=== PATIENT | female | born 1950 | race Two or more races ===

== ENCOUNTER 2018-02-11 07:51 | Day surgery (SDC) | payer OTHER ==
[~2018-02-11 07:51] MED LIST: ABATINEX680 MG PO; FLAGYL500MG PO; GLIMEPIRIDE4 MG PO; Intestinex CAP PO; LANTUS SOL100 UNIT/1; NORVASC10 MG PO; OMEPRAZOLE40 MG PO; OXYC1TAB9 PO; PANTOPRAZOLE SO40 MG PO
== END 2018-02-11 11:45 | disposition home or self-care (01) ==
LOC: AMB-ENDOS 07:51
DX: K63.5 Polyp of colon (principal)

== ENCOUNTER 2018-03-06 13:30 | Inpatient (IN) | payer OTHER ==
[~2018-03-06] VITALS: Ht 154.9 cm; Wt 94.3 kg
[2018-03-06] MEDS ORDERED: NORVASC10 MG PO (13:56)
[2018-03-15] MEDS ORDERED: INTESTINEX680 M1 PO (11:55)
[2018-03-15] MEDS ORDERED: PROTONIX40 MG PO (11:55)
[2018-03-15] MEDS ORDERED: FLAGYL500MG PO (11:55)
[2018-03-15] MEDS ORDERED: ULTRACET PO (11:55)
== END 2018-03-15 14:00 | disposition home or self-care (01) | DRG 333 ==
LOC: O/R 03-13 05:40 → SURG 03-13 05:40
PROVIDERS: Surgery
PROC: 0DQR0ZZ Repair Anal Sphincter, Open Approach (ICD-10-PCS; 2018-03-13)
PROC: 0DJD8ZZ Inspection of Lower Intestinal Tract, Via Natural or Artificial Opening Endoscopic (ICD-10-PCS; 2018-03-13)
PROC: 0DTP7ZZ Resection of Rectum, Via Natural or Artificial Opening (ICD-10-PCS; principal; 2018-03-13 15:30)
DX: K62.82 Dysplasia of anus (principal); N17.8 Other acute kidney failure; A04.72 Enterocolitis due to Clostridium difficile, not specified as recurrent; K62.3 Rectal prolapse; E11.9 Type 2 diabetes mellitus without complications

== ENCOUNTER 2019-02-20 16:58 | Inpatient (IN) | payer OTHER ==
[~2019-02-20] VITALS: Ht 154.9 cm; Wt 90.7 kg
[~2019-02-20 16:58] MED LIST changes: +INTESTINEX680 M1 PO; +PROTONIX40 MG PO; +ULTRACET PO
[2019-03-23] MEDS ORDERED: LOSARTAN-HCTZ1 EAC1 PO (10:39)
[2019-04-02] MEDS ORDERED: OXYC1TAB9 PO (10:44)
[2019-04-02] MEDS ORDERED: INTESTINEX680 M1 PO (10:45)
== END 2019-04-02 11:42 | disposition home or self-care (01) | DRG 348 ==
LOC: SURG 03-24 08:30 → O/R 03-30 06:36 → SURG 03-30 11:04
PROVIDERS: ADMIT Surgery
PROC: 0DQR0ZZ Repair Anal Sphincter, Open Approach (ICD-10-PCS; 2019-03-30)
PROC: 0WQN4ZZ Repair Female Perineum, Percutaneous Endoscopic Approach (ICD-10-PCS; 2019-03-30)
PROC: 0DJD8ZZ Inspection of Lower Intestinal Tract, Via Natural or Artificial Opening Endoscopic (ICD-10-PCS; 2019-03-30)
PROC: 0DBP7ZZ Excision of Rectum, Via Natural or Artificial Opening (ICD-10-PCS; principal; 2019-03-30 11:00)
DX: K62.3 Rectal prolapse (principal); A04.72 Enterocolitis due to Clostridium difficile, not specified as recurrent; N17.8 Other acute kidney failure; N81.5 Vaginal enterocele; N73.6 Female pelvic peritoneal adhesions (postinfective); E11.9 Type 2 diabetes mellitus without complications; I10 Essential (primary) hypertension